=== PATIENT | female | born 1965 | race Hispanic/Latino ===

== ENCOUNTER 2018-09-02 19:18 | Observation (INO) | payer SELFPAY ==
[2018-09-02 19:53] LABS: #Monocytes 0.3 thou/uL (0.11-0.59); %Basophils 1.6 % (0.0-1.0); %Eosinophils 1.4 % (0.0-10.0); %Lymphocytes 42.8 % (21.0-51.0); %Monocytes 13.6 % (0.0-10.0); %Neutrophils 40.6 % (42.0-75.0); Hemoglobin 14.1 g/dL (12.0-16.0); Mean Corpuscular HGB CONC 33.6 g/dL (32.0-36.0); Mean Corpuscular Hemoglobin 32.3 pg (27.0-31.0); Mean Platelet Volume 7.3 fL (7.4-10.4); Platelet Count 167 thou/uL (130-400); RBC Distribution Width 11.2 % (11.5-14.5); Red Blood Cell (RBC) Count 4.36 mill/uL (4.20-5.40); White Blood Cell (WBC) Count 2.4 thou/uL (4.8-10.8)
[2018-09-02 20:12] LABS: ALT (SGPT) 75 U/L (8-55); AST (SGOT) 112 U/L (5-34); Albumin 3.9 g/dL (3.5-5.0); Alkaline Phosphatase 110 U/L (40-150); Anion Gap 11 mmol/L (10-20); BUN (Urea Nitrogen) 11 mg/dL (9.8-20.1); Bilirubin, Total 0.5 mg/dL (0.2-1.2); Calc. Creatinine Clearance 0 mL/min (70-130); Calcium 8.8 mg/dL (7.8-10.44); Carbon Dioxide 30 mmol/L (22-29); Chloride 99 mmol/L (98-107); Estimated GFR-MDRD 71; Globulin 3.1 g/dL (2.4-3.5); Glucose 298 mg/dL (70-105); Potassium 4.2 mmol/L (3.5-5.1); Sodium 136 mmol/L (136-145)
[2018-09-02] MEDS ORDERED: Ondansetron PF 4 MG/2 ML Vial ONE (20:26)
[2018-09-02] MEDS ORDERED: Morphine 4 MG/ML VIAL ONE ×2 (20:26→21:57)
--- NOTE | 2018-09-02 20:36 | RAD ---
Portable frontal chest radiograph: 09/02/2018 COMPARISON: 09/06/2007 HISTORY: Epigastric pain FINDINGS: Lungs are clear. Heart and mediastinal contours appear within normal limits. IMPRESSION: No acute findings.
[2018-09-02 20:44] LABS: CK (CPK) 102 U/L (29-168); Lipase 50 U/L (8-78)
[2018-09-02] MEDS ORDERED: Lidocaine Viscous Sol 2% 15 ml UD Cup ONE (20:51)
[2018-09-02] MEDS ORDERED: Mag-Al 1200 mg/1200 mg/30 ML UDCUP ONE (20:51)
[2018-09-02 20:52] LABS: Bilirubin Negative (Negative); Blood, Urine Small (Negative); Clarity CLEAR (Clear); Glucose, Urine (Dipstick) >=1000 mg/dL (Negative); Leukocyte Negative (Negative); Nitrite Negative (Negative); Protein, Urine (Dipstick) Negative (Neg-Trace); Specific Gravity, Urine 1.022 (1.002-1.036)
[2018-09-02] MEDS ORDERED: Pantoprazole 40 MG VIAL ONE (20:53)
[2018-09-02 20:54] LABS: Bacteria/HPF None Seen HPF (None Seen); Hyaline Casts/LPF 0-3 HYALINE CAST LPF (0-3 Hyaline); Squamous Epithelial 0-3 HPF (0-3); WBC/HPF 0-3 HPF (0-3)
--- NOTE | 2018-09-02 21:49 | ULT ---
Right upper quadrant ultrasound: 09/02/2018 COMPARISON: None HISTORY: Pain TECHNIQUE: Multiplanar grayscale sonographic imaging of the right upper quadrant provided. FINDINGS: The pancreas is obscured by bowel gas. No focal liver lesion is seen. There is an echogenic focus measuring 8 mm in the upper pole of the right kidney suggesting a stone. Right kidney measures 10.6 cm in craniocaudal dimension and demonstrates no significant hydronephrosis or evidence of mass lesion. Echogenic foci noted within the gallbladder neck, evidence of cholelithiasis. Stones within the gallb ladder neck are nonmobile. Gallbladder wall appears normal in thickness. The common bile duct is mildly dilated measuring 7 mm. The [employer] reports a positive Treviño's sign. IMPRESSION: Positive Treviño's sign with a nonmobile gallstone within the gallbladder neck. Findings a re suspicious for acute cholecystitis. Mild prominence of the CBD may be on the basis of nonvisualized choledocholithiasis.
[2018-09-02] MEDS ORDERED: MEROPENEM 1 GM/50 ML 1 GM in Premix Bag 1 BAG IVPB SCH (22:15)
[2018-09-02] MEDS ORDERED: D5 1/2 NS w/20 mEq KCL 1,000 ML IV SCH (23:15)
[2018-09-02] MEDS ORDERED: Morphine 4 MG/ML VIAL SLOW IVP PRN (23:15)
[2018-09-02] MEDS ORDERED: Ondansetron PF 4 MG/2 ML Vial IVP PRN (23:16)
[2018-09-02] MEDS ORDERED: Ondansetron ODT 4 MG TAB SL PRN (23:16)
[2018-09-03 01:11] VITALS: BMI 21.9
[2018-09-03] MEDS ORDERED: Morphine 4 MG/ML VIAL SLOW IVP PRN (05:47)
[2018-09-03] MEDS ORDERED: Ondansetron PF 4 MG/2 ML Vial IVP PRN (05:48)
[2018-09-03] MEDS ORDERED: Ondansetron ODT 4 MG TAB SL PRN (05:49)
[2018-09-03] MEDS ORDERED: Dextrose 5% in Water 1,000 ML IV PRN (05:49)
[2018-09-03] MEDS ORDERED: HumaLOG 300 UNITS/3 ML VIAL SC PRN (05:49)
[2018-09-03] MEDS ORDERED: Dextrose 50% Abboject 50 ML SYRINGE IVP PRN (05:49)
[2018-09-03] MEDS ORDERED: MEROPENEM 1 GM/50 ML 1 GM in Premix Bag 1 BAG IVPB SCH (06:00)
[2018-09-03] MEDS ORDERED: D5 1/2 NS w/20 mEq KCL 1,000 ML IV SCH (06:00)
[2018-09-03] MEDS: MEROPENEM 1 GM/50 ML 1 GM in Premix Bag 1 BAG IVPB SCH ×2 (06:42→17:24)
[2018-09-03] MEDS ORDERED: Ketorolac Tromethamine 30 MG/ML VIAL IVP SCH (07:30)
[2018-09-03] MEDS ORDERED: Acetaminophen 1,000 MG in Premix Bag 1 BAG IVPB SCH (07:30)
--- NOTE | 2018-09-03 07:44 | HP ---
HISTORY OF PRESENT ILLNESS: Ayana Whittaker is a 53-year-old female, [place]ian speaking only, has had intermittent right upper quadrant pain for several years, but in the last 8 days, this has been unrelenting. She presents to the emergency room with a bilirubin of 0.5. AST and ALT of 112 and 75 respectively, alkaline phosphatase 110. Her lipase is normal. She underwent gallbladder ultrasound, revealing a 7 mm bile duct with multiple gallstones. She has a positive sonographic Treviño sign. The patient has been admitted and hydrated overnight. ALLERGIES: SHE REPORTS GI UPSET WITH HYDROCODONE, BUT NO RASH. SHE HAS GI UPSET WITH NSAIDS. TOBACCO: None. ALCOHOL: None. PAST SURGICAL HISTORY: . PAST MEDICAL HISTORY: Hypertension and diabetes. MEDICATIONS AT HOME: 1. Humulin 70/30 14 units b.i.d. subcu. 2. Aspirin 81 mg a day. 3. Multivitamins daily. 4. Vitamin E daily. 5. Fish oil daily. 6. Atorvastatin 20 mg a day. 7. Glipizide 10 mg a day. 8. Imodium as needed for diarrhea. 9. Metformin b.i.d. 10. Phenergan as needed for nausea. 11. Sucralfate 1 g p.o. b.i.d. REVIEW OF SYSTEMS: Ten-point noncontributory, except as noted above. FAMILY HISTORY: Noncontributory. PHYSICAL EXAMINATION: VITAL SIGNS: Height 5 feet 3 inches, weight 124 pounds, 22 BMI, temperature 98 degrees, heart rate 75, blood pressure 121/69. HEAD, EYES, EARS, NOSE, THROAT: Unremarkable. Sclerae nonicteric. LUNGS: Clear to auscultation. CARDIAC: Regular rate and rhythm without murmur or gallop. ABDOMEN: Soft. Tenderness in right upper quadrant with guarding and rebound. Positive Treviño sign. EXTREMITIES: Unremarkable. No ankle edema. Palpable pedal pulses. SKIN: Nonjaundiced. No lymphadenopathy in neck, axilla, or groins. NEUROLOGIC: Intact. No focal deficit. ASSESSMENT AND PLAN: Acute cholecystitis, cholelithiasis. Recommend laparoscopic video cholecystectomy. Risks of infection, bleeding, reoperation, visceral injury discussed. Plan is discharge home postoperatively today. Questions answered. Job ID: [id number]
[2018-09-03] MEDS ORDERED: Scopolamine 1.5 mg/72 hour Patch TD SCH (08:00)
[2018-09-03] MEDS: Lactated Ringer's 1,000 ML IV SCH ×2 (09:34→17:24)
[2018-09-03] MEDS: Acetaminophen 1,000 MG in Premix Bag 1 BAG IVPB SCH ×2 (12:45→19:36)
[2018-09-03] MEDS: Ketorolac Tromethamine 30 MG/ML VIAL IVP SCH ×2 (12:49→19:37)
[2018-09-03] MEDS ORDERED: Bupivacaine HCl 0.5%/Epinephrine 1:200,000/PF 30 ml Vial ONE (16:15)
[2018-09-03] MEDS ORDERED: Fentanyl 100 MCG/2 ML VIAL ONE ×3 (16:53→18:51)
[2018-09-03] MEDS ORDERED: Famotidine/PF 20 mg/2ml Vial ONE (16:58)
[2018-09-03] MEDS ORDERED: traMADol HCl 50 MG TAB PO PRN ×2 (18:08)
[2018-09-03] MEDS ORDERED: Acetaminophen 500 MG TAB PO PRN (18:08)
[2018-09-03] MEDS ORDERED: Promethazine HCl 25 MG/ML VIAL SLOW IVP PRN (18:13)
[2018-09-03] MEDS ORDERED: Meperidine HCl/PF 25 MG/ML VIAL SLOW IVP PRN (18:13)
[2018-09-03] MEDS ORDERED: Ondansetron HCl/PF 4 MG/2 ML Vial IVP PRN (18:13)
[2018-09-03] MEDS ORDERED: Promethazine HCl 25 MG/ML VIAL IM PRN (18:13)
[2018-09-03] MEDS ORDERED: Ketorolac Tromethamine 30 MG/ML VIAL IVP PRN (22:27)
--- NOTE | 2018-09-04 00:43 | OP ---
DATE OF PROCEDURE: 09/03/2018 PREOPERATIVE DIAGNOSES: Acute cholecystitis, cholelithiasis, chronic cholecystitis. POSTOPERATIVE DIAGNOSES: Acute cholecystitis, cholelithiasis, chronic cholecystitis. PROCEDURE PERFORMED: Laparoscopic video cholecystectomy. ANESTHESIA: General, local 0.5% Marcaine with epinephrine 30 mL. FINDINGS: Very large stone obstructing the gallbladder outlet, chronic inflammation. DESCRIPTION OF PROCEDURE: The patient was taken to the operating room in supine position. Abdomen was prepared with ChloraPrep and draped in routine fashion. Local anesthetic of 0.5% Marcaine with epinephrine was infiltrated in the skin and subcutaneous tissue about each port site. Infraumbilical incision was made and pneumoperitoneum to 15 mmHg obtained with a Veress needle, replaced with a 5 port, video laparoscope inserted. Right subxiphoid incision was made and 11 port placed, right subcostal incision was made, midclavicular entrance line and 5 port was placed. The gallbladder was difficult to grasp and required decompression. Once it was decompressed, it was fundus grasped at the cephalad. Liver appeared to be normal. Infundibulum was grasped at the lateral. Cystic artery and duct dissected free. Critical view obtained. Cystic artery and duct double clipped proximally and divided, and gallbladder and contents removed, submitted to Pathology. Good hemostasis was obtained with cautery. Bert was used. Irrigant and pneumoperitoneum evacuated. All instruments were removed and all skin incisions were approximated with interrupted subdermal 4-0 Monocryl and [place] glue applied. The patient tolerated the procedure well. Job ID: [id number]
--- NOTE | 2018-09-04 00:54 | DIS ---
DATE OF ADMISSION: 09/02/2018 DATE OF DISCHARGE: 09/03/2018 HISTORY: A 53-year-old female with a long history of biliary colic and pain, presents with unrelenting episode of pain, presents to the emergency room with ultrasound revealing cholecystitis and cholelithiasis. Liver function tests were normal. CBC normal. The patient admitted, given intravenous antibiotics overnight with fluids, taken to the operating room where laparoscopic cholecystectomy was performed. Postoperatively, tolerated diet and discharged home on Ultram, Tylenol, Motrin p.r.n. pain. Follow up in my office in 2 to 3 weeks. Diet and activity as tolerated. Job ID: [id number]
[2018-09-04 08:41] VITALS: BP 130/63; TEMP 98.3
[2018-09-04] MEDS ORDERED: Polyethylene Glycol 3350 17 GM Packet PO SCH (09:00)
== END 2018-09-04 11:40 | disposition home or self-care (01) ==
LOC: ERS 19:18 → SURG A 21:46
PROVIDERS: ADMIT Specialist; ATTEND Specialist
PROC: 0FT44ZZ Resection of Gallbladder, Percutaneous Endoscopic Approach (ICD-10-PCS; principal; 2018-09-03)
DX: K80.12 Calculus of gallbladder with acute and chronic cholecystitis without obstruction (principal); I10 Essential (primary) hypertension; E11.9 Type 2 diabetes mellitus without complications; Z79.4 Long term (current) use of insulin; Z79.82 Long term (current) use of aspirin; Z79.899 Other long term (current) drug therapy; Z88.5 Allergy status to narcotic agent; Z88.6 Allergy status to analgesic agent
CPT/HCPCS: 36415; 36416; 71045; 76705; 80053; 81003; 81015; 82550; 83690; 83880; 84484; 85025; 88304; 93005; 96361; 96374; 96375; 96376; C9113; G0378; J0131; J0670; J1885; J2185; J2270; J2405; J3010; S0028

== ENCOUNTER 2018-09-13 11:15 | Emergency (ER) | payer SELFPAY ==
[2018-09-13 11:50] LABS: #Eosinphils 0.1 thou/uL (0.0-0.7); #Lymphocytes 1.4 thou/uL (1.20-3.40); #Monocytes 0.2 thou/uL (0.11-0.59); #Neutrophils 3.7 thou/uL (1.40-6.50); %Basophils 0.7 % (0.0-1.0); %Eosinophils 1.1 % (0.0-10.0); %Lymphocytes 25.7 % (21.0-51.0); %Monocytes 4.3 % (0.0-10.0); %Neutrophils 68.3 % (42.0-75.0); Hemoglobin 12.7 g/dL (12.0-16.0); Mean Corpuscular HGB CONC 33.9 g/dL (32.0-36.0); Mean Corpuscular Hemoglobin 32.3 pg (27.0-31.0); Mean Corpuscular Volume 95.1 fL (78.0-98.0); Mean Platelet Volume 6.4 fL (7.4-10.4); Platelet Count 459 thou/uL (130-400); RBC Distribution Width 10.8 % (11.5-14.5); Red Blood Cell (RBC) Count 3.92 mill/uL (4.20-5.40); White Blood Cell (WBC) Count 5.4 thou/uL (4.8-10.8)
[2018-09-13 12:14] LABS: ALT (SGPT) 54 U/L (8-55); AST (SGOT) 23 U/L (5-34); Albumin 3.8 g/dL (3.5-5.0); Alkaline Phosphatase 178 U/L (40-150); Anion Gap 14 mmol/L (10-20); BUN (Urea Nitrogen) 12 mg/dL (9.8-20.1); Bilirubin, Total 0.6 mg/dL (0.2-1.2); Calc. Creatinine Clearance 0 mL/min (70-130); Calcium 9.6 mg/dL (7.8-10.44); Carbon Dioxide 30 mmol/L (22-29); Chloride 95 mmol/L (98-107); Estimated GFR-MDRD 76; Globulin 3.8 g/dL (2.4-3.5); Glucose 253 mg/dL (70-105); Lipase 37 U/L (8-78); Potassium 4.6 mmol/L (3.5-5.1); Protein, Total 7.6 g/dL (6.0-8.3); Sodium 134 mmol/L (136-145)
[2018-09-13 12:19] LABS: Bilirubin Negative (Negative); Blood, Urine Negative (Negative); Clarity CLEAR (Clear); Glucose, Urine (Dipstick) 250 mg/dL (Negative); Leukocyte Negative (Negative); Nitrite Negative (Negative); Protein, Urine (Dipstick) Negative (Neg-Trace); Specific Gravity, Urine 1.013 (1.002-1.036); pH, Urine 6.5 (5.0-9.0)
--- NOTE | 2018-09-13 13:14 | RAD ---
Frontal radiograph chest 2 views abdomen: 09/13/2018 COMPARISON: None HISTORY: Intermittent abdominal pain and constipation FINDINGS: Frontal radiograph chest demonstrates no pneumothorax, pleural fluid, focal consolidation, or alveolar edema. Heart and mediastinal contours unremarkable. Atherosclerotic calcification of the aortic arch noted. Clips in right upper quadrant suggest prior cholecystectomy. There is significant stool seen througho ut the colon. No free intraperitoneal air is appreciated. The bowel gas pattern appears nonobstructed. A calcification overlies the 12th rib on the right measuring 7 mm, which likely represents a renal st one. IMPRESSION: 1. No radiographic evidence of acute cardiopulmonary disease. 2. Probable right renal calculus. 3. No free intraperitoneal air or evidence of small bowel obstruction. Large volume stool within the colon.
[2018-09-13] MEDS ORDERED: Magnesium Citrate 300 ML BOT ONE (13:29)
[2018-09-13] MEDS ORDERED: Magnesium Citrate 300 ML BOT PO SCH (13:30)
== END 2018-09-13 13:35 | disposition home or self-care (01) ==
LOC: ERS 11:15
DX: K59.00 Constipation, unspecified (principal); E11.9 Type 2 diabetes mellitus without complications; Z79.84 Long term (current) use of oral hypoglycemic drugs
CPT/HCPCS: 36415; 74022; 80053; 81003; 83690; 85025

== ENCOUNTER 2019-05-12 08:08 | Outpatient (CLI) | payer OTHER ==
--- NOTE | 2019-06-09 16:38 | RAD ---
ONE VIEW ABDOMEN: 06/09/19 HISTORY: Right upper quadrant abdominal pain. The patient states pain for five days. FINDINGS: This examination is on the taken list and was performed on 05/12/2019 but has not been submitted for interpretation until 06/09/2019. There is a small to moderate amount of retained fecal material seen throughout the colon. The overal l distribution of retained fecal material throughout the colon is not significantly changed from a pr ior study on 09/13/18. The bowel gas pattern is otherwise nonspecific. Surgical clips overlie the right upper quadrant. Calcification again overlies the expected location o f the right renal shadow likely related to a renal calculus. Mild degenerative changes are seen in th e spine. IMPRESSION: 1. Moderate amount of retained fecal material seen throughout the colon not significantly change d when compared to prior exam. 2. Right nephrolithiasis. POS: OFF
== END 2019-05-12 08:09 | disposition home or self-care (01) ==
LOC: BICRAD 08:08
PROVIDERS: ATTEND Internal Medicine
DX: R10.11 Right upper quadrant pain (principal); N20.0 Calculus of kidney; R19.5 Other fecal abnormalities
CPT/HCPCS: 74018

== ENCOUNTER 2022-06-30 10:02 | Outpatient (CLI) | payer SELFPAY ==
[2022-06-30 10:47] LABS: Anion Gap 14 mmol/L (10-20); BUN (Urea Nitrogen) 15 mg/dL (9.8-20.1); Calc. Creatinine Clearance 0 mL/min (70-130); Carbon Dioxide 26 mmol/L (22-29); Chloride 100 mmol/L (98-107); Estimated GFR 93; Glucose 275 mg/dL (70-105); Potassium 4.4 mmol/L (3.5-5.1); Sodium 136 mmol/L (136-145)
== END 2022-06-30 10:03 | disposition home or self-care (01) ==
LOC: LABBT 10:02
PROVIDERS: ATTEND Orthopaedic Surgery
DX: Z01.812 Encounter for preprocedural laboratory examination (principal); S82.122A Displaced fracture of lateral condyle of left tibia, initial encounter for closed fracture
CPT/HCPCS: 80048; 93005; 93010

== ENCOUNTER 2022-07-01 13:02 | Observation (INO) | payer OTHER, SELFPAY ==
[2022-07-01] MEDS ORDERED: Sodium Chloride 0.9% 100 ML ONE (15:10)
[2022-07-01] MEDS ORDERED: Lidocaine 1% MPF 2 ML VIAL ONE (15:10)
[2022-07-01] MEDS ORDERED: CEFAZOLIN 2 GM VIAL ONE (15:10)
[2022-07-01] MEDS ORDERED: fentaNYL PF 100 MCG/2 ML SYRINGE ONE (15:30)
[2022-07-01] MEDS ORDERED: PROPOFOL 200 MG/20 ML VIAL ONE (15:57)
[2022-07-01] MEDS ORDERED: Bupivacaine HCl 0.5%/Epinephrine 1:200,000/PF 30 ml Vial ONE (15:57)
[2022-07-01] MEDS ORDERED: Glycopyrrolate 0.2 MG/ML 5 ML SYRINGE ONE (15:57)
[2022-07-01] MEDS ORDERED: Ondansetron PF 4 MG/2 ML Vial ONE (15:57)
[2022-07-01] MEDS ORDERED: Lidocaine 1% PF 5 ML VIAL ONE (15:57)
[2022-07-01 16:21] LABS: SARS-CoV-2 NAA Rapid Test Not Detected (NotDetected)
[2022-07-01] MEDS ORDERED: Fentanyl 100 MCG/2 ML VIAL ONE ×2 (17:28→18:17)
[2022-07-01] MEDS ORDERED: HYDROmorphone 0.5 MG/0.5 ML SYRINGE ONE (17:36)
[2022-07-01] MEDS ORDERED: TETANUS, DIPHTHERIA TOX,ADULT (TDVAX) 0.5 ML VIAL IM ONE (18:51)
[2022-07-01] MEDS ORDERED: traMADol HCl 50 MG TAB PO PRN ×2 (18:51)
[2022-07-01] MEDS ORDERED: Communication Order-Pharmacy FS SCH (19:00)
[2022-07-01] MEDS ORDERED: Promethazine HCl 25 MG/ML VIAL IM/IV PRN (19:30)
[2022-07-01] MEDS ORDERED: HYDROmorphone 2 MG/ML VIAL SLOW IVP PRN (19:30)
[2022-07-01] MEDS ORDERED: Ondansetron HCl/PF 4 MG/2 ML Vial IVP PRN (19:30)
[2022-07-01] MEDS ORDERED: Acetaminophen 325 MG TAB PO PRN (20:59)
[2022-07-01] MEDS: Morphine 2 MG/ML VIAL SLOW IVP PRN (21:14)
[2022-07-01] MEDS: Sucralfate 1 GM TAB PO SCH (21:14)
[2022-07-01] MEDS: Atorvastatin Calcium 20 MG TAB PO SCH (21:15)
[2022-07-01] MEDS ORDERED: Promethazine HCl 12.5 MG in Sodium Chloride 0.9% 50 ML IVPB PRN (21:39)
[2022-07-01 22:45] VITALS: BMI 30.2
[2022-07-01] MEDS: CEFAZOLIN 2 GM in Sodium Chloride 0.9% 100 ML IVPB SCH (23:41)
[2022-07-01] MEDS: oxyCODONE/Acetaminophen 5 mg/325 mg Tablet PO PRN (23:42)
[2022-07-01] MEDS: Ondansetron PF 4 MG/2 ML Vial IVP PRN (23:42)
[2022-07-02] MEDS: oxyCODONE/Acetaminophen 5 mg/325 mg Tablet PO PRN ×5 (05:20→23:14)
[2022-07-02 07:22] LABS: Hemoglobin 11.3 g/dL (12.0-16.0); Mean Corpuscular HGB CONC 33.8 g/dL (32.0-36.0); Mean Corpuscular Hemoglobin 33.5 pg (27.0-31.0); Mean Corpuscular Volume 99.3 fl (78.0-98.0); Mean Platelet Volume 7.7 fL (7.4-10.4); Platelet Count 202 10x3/uL (130-400); RBC Distribution Width 11.9 % (11.5-14.5); Red Blood Cell (RBC) Count 3.36 mill/uL (4.20-5.40); White Blood Cell (WBC) Count 6.8 10x3/uL (4.8-10.8)
[2022-07-02] MEDS ORDERED: Bupivacaine PF 0.5% 30 ML VIAL ONE (07:27)
[2022-07-02] MEDS ORDERED: Dextrose 50% Abboject 50 ML SYRINGE SLOW IVP PRN (08:13)
[2022-07-02] MEDS ORDERED: Dextrose 5% in Water 1,000 ML IV PRN (08:13)
[2022-07-02] MEDS ORDERED: Insulin Regular 300 UNITS/3 ML VIAL SC PRN (08:13)
[2022-07-02 08:22] LABS: Band 1 % (5-11); Lymphocytes 22 % (21-51); MDiff Complete? YES; Monocytes 10 % (0-10); Neutrophil 67 % (42-75); Platelet Morphology Comment Appears Adequate; Polychromasia SLIGHT = 2-3 cells (100X) (0-2/hpf)
[2022-07-02] MEDS: CEFAZOLIN 2 GM in Sodium Chloride 0.9% 100 ML IVPB SCH ×2 (09:02→16:08)
[2022-07-02] MEDS: Sucralfate 1 GM TAB PO SCH ×2 (09:03→21:31)
[2022-07-02] MEDS: HumaLOG 300 UNITS/3 ML VIAL SC PRN ×4 (09:04→21:32)
[2022-07-02] MEDS: Pioglitazone HCl 45 MG TAB PO SCH (09:08)
[2022-07-02] MEDS: Ondansetron PF 4 MG/2 ML Vial IVP PRN (18:25)
[2022-07-02] MEDS: Atorvastatin Calcium 20 MG TAB PO SCH (21:31)
[2022-07-02] MEDS: Morphine 2 MG/ML VIAL SLOW IVP PRN (23:29)
[2022-07-03] MEDS: oxyCODONE/Acetaminophen 5 mg/325 mg Tablet PO PRN ×3 (05:04→17:16)
[2022-07-03] MEDS: HumaLOG 300 UNITS/3 ML VIAL SC PRN (05:12)
[2022-07-03 08:07] VITALS: TEMP 98.2
[2022-07-03] MEDS ORDERED: HumaLOG 300 UNITS/3 ML VIAL SC PRN (08:10)
[2022-07-03] MEDS ORDERED: HumuLIN 70/30 (300 UNITS/3 ML VIAL) SC SCH ×3 (09:00→21:00)
[2022-07-03] MEDS: Pioglitazone HCl 45 MG TAB PO SCH (09:54)
[2022-07-03] MEDS: Sucralfate 1 GM TAB PO SCH (09:54)
[2022-07-03] MEDS ORDERED: diphenhydrAMINE 25 MG CAP PO SCH (14:45)
[2022-07-03 16:05] VITALS: BP 118/63
[2022-07-03] MEDS ORDERED: Aspirin 81 mg Enteric Coated Tablet PO SCH (21:00)
== END 2022-07-03 18:00 | disposition home or self-care (01) ==
LOC: SDC 13:02 → SJJU 18:51
PROVIDERS: ADMIT Orthopaedic Surgery; ATTEND Orthopaedic Surgery
PROC: 0QSH04Z Reposition Left Tibia with Internal Fixation Device, Open Approach (ICD-10-PCS; principal; 2022-07-01)
DX: S82.122A Displaced fracture of lateral condyle of left tibia, initial encounter for closed fracture (principal); I10 Essential (primary) hypertension; E11.9 Type 2 diabetes mellitus without complications; E78.2 Mixed hyperlipidemia; Z79.4 Long term (current) use of insulin; Z79.84 Long term (current) use of oral hypoglycemic drugs; Z79.899 Other long term (current) drug therapy; Z88.5 Allergy status to narcotic agent; Z88.6 Allergy status to analgesic agent; Z20.822 Contact with and (suspected) exposure to COVID-19; W01.0XXA Fall on same level from slipping, tripping and stumbling without subsequent striking against object, initial encounter
CPT/HCPCS: 36415; 36416; 85025; 96365; 96375; 96376; C1713; G0378; J1170; J1815; J2272; J2405; J2704; J3010; J3490; S0020; U0002

== ENCOUNTER 2022-08-11 10:32 | Outpatient (CLI) | payer OTHER | END 2022-08-11 10:33 | disposition home or self-care (01) | LOC: TBSIIMAG 10:32 | PROVIDERS: ATTEND Neurological Surgery | DX: M48.56XA Collapsed vertebra, not elsewhere classified, lumbar region, initial encounter for fracture (principal); M47.816 Spondylosis without myelopathy or radiculopathy, lumbar region; R29.890 Loss of height | CPT/HCPCS: 72100 ==